=== PATIENT | female | born 1955 | race Caucasian/White ===

== ENCOUNTER → 2024-08-04 | Outpatient (CLI) | payer MEDICARE, SELFPAY ==
--- NOTE | 2024-08-04 13:11 | XR_ITS ---
Examination: CT abdomen with intravenous contrast CT pelvis with intravenous contrast 2-D coronal reconstructions 2-D sagittal reconstructions Date and time of exam:August 04, 2024 1254 hours INDICATIONS: Epigastric pain 5 months, elevated liver enzymes on laboratory examination July 2024. CTDI: vol (mGy) 6.58 DLP: (mGycm) 339 Technique: Multiple axial sections of the abdomen and pelvis have been obtained. 64 slice high-resolution scanner used. 3 mm axial sections have been obtained, post intravenous injection 60 cc [id number] 2-D sagittal, coronal reconstructions obtained. Low dose protocols were performed. One or more of the following dose reduction techniques were used; automated exposure control, adjustment of the mA and/or KV according to patient size, use of iterative reconstruction technique. Findings: No focal liver or splenic lesions Absent gallbladder Common bile duct is enlarged 15 mm No pancreatic mass No hydronephrosis Abdominal aortic calcification no aneurysmal dilatation No bowel obstruction No pericecal inflammatory change No diverticulitis Atrophic uterus with calcified areas of fibroid degeneration in the fundus Urinary bladder intact Severe osteopenia, transpedicular fusion with disc spacers L3-S1 IMPRESSION: Abnormally enlarged common bile duct 15 mm Consider MRCP follow-up
== END | disposition home or self-care (01) ==
PROVIDERS: PCP Internal Medicine Pulmonary Disease; Referring Provider Specialist; Visit Provider Specialist
DX: K83.8 Other specified diseases of biliary tract (principal)
CPT/HCPCS: 74177; A4649; Q9967

== ENCOUNTER → 2024-08-04 | Outpatient (CLI) | payer MEDICARE, SELFPAY ==
--- NOTE | 2024-08-04 10:04 | XR_ITS ---
Examination: Abdomen sonogram, Limited Date and time of exam: August 04, 2024 1016 hours INDICATIONS: Epigastric pain beginning 5 months ago Technique: Real-time beltre scale transabdominal sonographic images of the upper abdomen obtained. Findings: Absent gallbladder Normal common bile duct 0.3 cm Pancreatic head 3.9 cm dilated pancreatic duct 5 mm Liver 14.3 cm fatty infiltration no focal liver lesions Normal hepatopedal portal venous flow Patent IVC IMPRESSION: Absent gallbladder Normal common bile duct Enlarged pancreatic head with dilated pancreatic duct 5 mm Consider MRCP, MRI abdomen follow-up pre and postcontrast
[2024-08-04 11:42] LABS: INR 0.9 (0.9-1.3); Prothrombin Time 10.2 Seconds (9.0-12.2)
[2024-08-04 11:48] LABS: Alanine Aminotransferase 248 U/L (10-49); Albumin, Serum 4.7 gm/dL (3.4-4.8); Alkaline Phosphatase 178 U/L (46-116); Aspartate Amino Transferase 119 U/L (0-34); Bilirubin,Direct 0.1 mg/dL (0.0-0.3); Bilirubin,Total 0.4 mg/dL (0.3-1.2); Total Protein 6.8 gm/dL (5.7-8.2)
[2024-08-04 12:22] LABS: Hepatitis A Antibody IgM Non Reactive (Non React); Hepatitis B Core Antibody IgM Non Reactive (Non React); Hepatitis B Surface Antigen Non Reactive (Non React); Hepatitis C Antibody Non Reactive (Non React)
[2024-08-12 06:58] LABS: ANA Screen, IFA POSITIVE (NEGATIVE); Actin Antibody (IgG)* <20 U; Alpha-1-Antitrypsin* 149 mg/dL (83-199); Ceruloplasmin* 29 mg/dL (14-48); Mitochondrial Ab NEGATIVE (NEGATIVE)
== END | disposition home or self-care (01) ==
LOC: CDIM 09:44 → COPL 10:55
PROVIDERS: Referring Provider Specialist; Visit Provider Radiology Diagnostic Radiology
DX: K86.89 Other specified diseases of pancreas (principal); Z90.49 Acquired absence of other specified parts of digestive tract; R94.5 Abnormal results of liver function studies
CPT/HCPCS: 36415; 76705; 80074; 80076; 82103; 82105; 82390; 82728; 83540; 83550; 85610; 86015; 86038; 86255

== ENCOUNTER → 2024-09-02 | Outpatient (CLI) | payer MEDICARE, SELFPAY ==
--- NOTE | 2024-09-02 09:24 | XR_ITS ---
MRI abdomen, without contrast. MRCP Date and time of exam: September 02, 2024 1001 hrs. Indications: Epigastric pain right-sided abdominal pain and jaundice beginning 4 months ago, elevated liver enzymes on laboratory examination performed 2 months ago, enlarged common bile duct [address] abdomen pelvis August 04, 2024, enlarged pancreatic head with dilated pancreatic duct on gallbladder sonogram August 04, 2024 Technique: Multiple axial and coronal images of the abdomen have been obtained with the Siemens 1.5T MRI scanner. Images obtained included T1 weighted transverse images, T2-weighted transverse images, T2-weighted transverse images fat-suppressed, T2 weighted haste fat suppressed transverse images, T1 weighted images, in and out of phase images, T2-weighted coronal images, breath hold, T2 weighted haze coronal images as well as T2 weighted coronal thick slab images, MRCP. Findings: Mild intrahepatic biliary tract dilatation Absent gallbladder Common hepatic duct 13 mm common bile duct 8 mm Fairly abrupt termination of the distal common bile duct No stones Pancreatic duct mildly dilated 5 mm No pancreatic mass No hydronephrosis No ascites No splenomegaly Impression: Prominent common hepatic common bile duct with fairly abrupt termination of the distal common bile duct, consider ERCP follow-up to assess for stricture involving the distal common bile duct
== END | disposition home or self-care (01) ==
PROVIDERS: PCP Internal Medicine Pulmonary Disease; Referring Provider Specialist; Visit Provider Specialist
DX: K83.8 Other specified diseases of biliary tract (principal)
CPT/HCPCS: S8037; 74181

== ENCOUNTER → 2024-12-27 | Outpatient (CLI) | payer MEDICARE, SELFPAY ==
[2024-12-24 12:05] LABS: Basophils # (Auto) 0.1 Thou/mm3 (0.0-0.2); Basophils % (Auto) 1 % (0-2.5); Eosinophils # (Auto) 0.1 Thou/mm3 (0.0-0.5); Eosinophils % (Auto) 2 % (0-10); Hematocrit 45.2 % (36.0-46.0); Hemoglobin 14.8 g/dL (12.0-16.0); Immature Granulocytes % (Auto) 0 % (0-0); Immature Granulocytes Auto 0.02 Thou/mm3 (0.00-0.00); Lymphocytes # (Auto) 2.3 Thou/mm3 (1.0-4.8); Lymphocytes % (Auto) 31 % (10-50); Mean Corpuscular HGB Conc 32.7 g/dl (31.0-37.0); Mean Corpuscular Volume 95 fL (80-100); Monocytes # (Auto) 0.5 Thou/mm3 (0.0-0.8); Monocytes % (Auto) 7 % (0-12); Neutrophils # (Auto) 4.3 Thou/mm3 (1.8-7.7); Neutrophils % (Auto) 59 % (37-80); Nucleated Red Blood Cell % 0 /100 WBC (0); Platelet Count 293 Thou/mm3 (140-440); RDW Standard Deviation 43.5 fL (36.4-46.3); Red Blood Count 4.78 Miln/mm3 (4.00-5.20); White Blood Count 7.3 Thou/mm3 (3.6-11.0)
[2024-12-24 12:13] LABS: Partial Thromboplastin Time 26.4 Seconds (22.0-36.0); Prothrombin Time 10.5 Seconds (9.0-12.2)
--- NOTE | 2024-12-27 10:30 | XR_ITS ---
Examination: Ultrasound-guided percutaneous liver biopsy Ultrasound abdomen limited Exam date and time: December 27, 2024 1056 hours INDICATIONS: Abnormal liver function tests on laboratory examination this month. Informed consent provided. Technique: A timeout was completed, verifying correct patient, procedure, site, positioning, and special equipment if applicable. The patient was placed in supine position for right lobe liver biopsy. The patient's skin was prepped and draped in sterile fashion. Maximum sterile barrier technique, hand hygiene, ultrasound sterile technique 1% lidocaine was used to anesthetize the skin and subcutaneous tissues. Ultrasound was utilized for two 18-gauge core liver biopsies, utilizing a BioPince needle. Specimens appear adequate. Estimated blood loss 0 cc. The patient tolerated the procedure well and there were no complications. Impression: Successful ultrasound-guided percutaneous liver biopsy.
[2024-12-27 11:20] VITALS: BP 125/68; PULSE 64; RESP 16; TEMP 36.7; O2SAT 99
[2024-12-27 11:30] VITALS: BP 143/74; PULSE 59; RESP 17; O2SAT 98
[2024-12-27 11:45] VITALS: BP 148/74; PULSE 62; RESP 14; O2SAT 97
[2024-12-27 12:00] VITALS: BP 144/78; PULSE 60; RESP 15; O2SAT 96
[2024-12-27 12:15] VITALS: BP 138/78; RESP 19; O2SAT 97
--- NOTE | 2024-12-27 12:20 | PC.NURSE ---
Recovered patient for one hour post liver biopsy. Patient did well. No complaints or concerns or pain. Vital signs WNL. Patient was discharged home with brother.
== END | disposition home or self-care (01) ==
LOC: SIRX 10:55
PROVIDERS: Radiology Diagnostic Radiology; PCP Internal Medicine Pulmonary Disease; Referring Provider Specialist; Visit Provider Specialist
DX: K75.9 Inflammatory liver disease, unspecified (principal)
CPT/HCPCS: 47000; 36415; 85025; 85610; 85730